=== PATIENT | male | born 1990 | race Caucasian/White ===

== ENCOUNTER 2019-11-02 03:16 | Emergency (ER) | payer BC ==
[~2019-11-02] VITALS: Ht 182.9 cm; Wt 100.0 kg
--- NOTE | 2019-11-02 04:08 | NUR ---
PT TO ROOM FROM [facility].
--- NOTE | 2019-11-02 04:42 | NUR ---
PT CONTINUES TO SLEEP, RESPIRATIONS EVEN AND UNLABORED, ATTACHED TO MONITORING EQUIPMENT. ALL VITALS STABLE.
--- NOTE | 2019-11-02 05:35 | NUR ---
PT SLEEPING, RESPIRATIONS EVEN AND UNLABORED. AWAITING PT TO SOBER UP FOR SAFE DISCHARGE
[2019-11-02 07:44] VITALS: BP 135/76
--- NOTE | 2019-11-02 07:44 | NUR ---
REPORT RECIEVED FROM TAMI PARK. PATIENT RESTING IN BED. WATER AND SNACK PROVIDED.
--- NOTE | 2019-11-02 08:07 | NUR ---
DISCHARGE INSTRUCTIONS REVIEWED
== END 2019-11-02 08:17 | disposition home or self-care (01) ==
LOC: ED 07:40
DX: F10.120 Alcohol abuse with intoxication, uncomplicated (principal); Y90.0 Blood alcohol level of less than 20 mg/100 ml
CPT/HCPCS: 36415; 80307; 99283